=== PATIENT | male | born 1960 | race Hispanic/Latino ===

== ENCOUNTER 2022-02-24 09:50 | Day surgery (SDC) | payer OTHER ==
[2022-02-18 11:05] LABS: BASOPHILS % (AUTO) 1.2 % (0.0-5.0); HEMATOCRIT 46.1 % (42-54); MEAN CORPUSCULAR HEMOGLOBIN 27.2 pg (27.0-33.0); MEAN CORPUSCULAR HGB CONC 31.5 g/dL (32.0-36.0); MEAN CORPUSCULAR VOLUME 86.5 fL (79-99); MONOCYTES % (AUTO) 6.5 % (3.0-13.0); PLATELET COUNT (AUTO) 308 K/uL (130-400); RED BLOOD CELL COUNT(AUTO) 5.33 MIL/uL (4.50-6.20); RED CELL DISTRIBUTION WIDTH 13.2 % (11.0-15.5); WHITE BLOOD COUNT (AUTO) 6.7 K/uL (4.8-10.8)
[2022-02-18 11:18] LABS: CREATININE 0.9 mg/dL (0.5-1.5); POTASSIUM 3.8 mmol/L (3.5-5.1)
[2022-02-23 14:31] VITALS: BP 150/89
[2022-02-24] VITALS (15 sets, daily range): BP systolic 119–149; BP diastolic 75–91
[~2022-02-24] VITALS: Ht 172.7 cm; Wt 97.4 kg
[~2022-02-24 09:50] MED LIST: ALLO300T2 PO; AMLO-258 PO; CEFAZOLIN SODIUM 1 GM VIAL IVP ONE; LACTATED RINGERS 1000ML 1,000 ML IV SCH; METO-391 PO; OMEG-148 PO; RAMI10CA69 PO; ROSU20TA31 PO; VITAD50000 PO
[2022-02-24] MEDS ORDERED: BUPIVACAINE/EPI/PF 0.25% 30ML VIAL IJ ONE (12:21)
[2022-02-24] MEDS ORDERED: THROMBIN-JMI 20000 UNIT KIT TP ONE (12:21)
[2022-02-24] MEDS ORDERED: BACITRACIN 28.4 GM OINT TP ONE (12:21)
[2022-02-24] MEDS ORDERED: FAMOTIDINE 20MG VIAL IV ONE (12:28)
[2022-02-24] MEDS ORDERED: LIDOCAINE PF 100MG/5ML (2%) SYRINGE 5ML ONE (12:34)
[2022-02-24] MEDS ORDERED: SUCCINYLCHOLINE CHLORIDE 20 MG/ML 10 ML VIAL ONE (12:34)
[2022-02-24] MEDS ORDERED: PROPOFOL 10 MG/ML 20ML VIAL IV ONE (12:34)
[2022-02-24] MEDS ORDERED: MIDAZOLAM HCL 1 MG/ML 2ML VIAL ONE (12:35)
[2022-02-24] MEDS ORDERED: FENTANYL CITRATE PF 50 MCG/1 ML 2ML VIAL ONE (12:35)
[2022-02-24] MEDS ORDERED: ROCURONIUM 10MG/1ML SYR 10 MG/ML ML ONE (12:35)
[2022-02-24] MEDS ORDERED: EPHEDRINE SULFATE 50 MG/ML AMPULE ONE (13:07)
[2022-02-24] MEDS ORDERED: CEFAZOLIN SODIUM 2 GM VIAL IV ONE (13:11)
[2022-02-24] MEDS ORDERED: ONDANSETRON 4MG INJ ONE (13:17)
[2022-02-24] MEDS ORDERED: MEPERIDINE-PF 25 MG/ML SYG ONE (16:51)
[2022-02-24] MEDS ORDERED: DEXAMETHASONE SOD PHOSPHATE 4 MG/ML 1ML VIAL ONE (17:05)
== END 2022-02-24 19:00 | disposition home or self-care (01) ==
LOC: DAH 09:50
PROVIDERS: ATTEND Surgery
DX: E04.2 Nontoxic multinodular goiter (principal); I10 Essential (primary) hypertension; E11.9 Type 2 diabetes mellitus without complications; M10.9 Gout, unspecified; M19.90 Unspecified osteoarthritis, unspecified site; E78.00 Pure hypercholesterolemia, unspecified; Z88.2 Allergy status to sulfonamides; Z82.49 Family history of ischemic heart disease and other diseases of the circulatory system; Z80.1 Family history of malignant neoplasm of trachea, bronchus and lung; Z98.890 Other specified postprocedural states; Z68.32 Body mass index [BMI] 32.0-32.9, adult
CPT/HCPCS: 80048; 85025; 87426; 36415; 93005; 60220; J1100; A4215 ×2; A4649 ×2; J0690 ×2; J7120; J3490 ×3; J3010; J0330; J2001; J2250; J2704; J2405; J2175; A6206; C1713 ×2; A4223; A4222; A4221; A4663; A4600